=== PATIENT | female | born 2000 | race Native Hawaiian/Other Pacific Islander ===

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

== ENCOUNTER 2020-08-08 03:09 | Emergency (ER) | payer MEDICAID ==
[~2020-08-08] VITALS: Ht 154.9 cm; Wt 49.0 kg
[~2020-08-08 03:09] MED LIST changes: -FERR-252 PO
[2020-08-08 03:15] VITALS: BP 122/81
--- NOTE | 2020-08-08 03:16 | NUR ---
C/O LOWER ABD AND VAGINAL BLEEDING X 2 WEEKS. ABD PAIN COMES AND GOES. VSS. DENIES ANY N,V,DIZZINESS, OR LIGHTHEADEDNESS. 7/10 PAIN. 5MONTHS AGO SHE GOT A CONTROL IMPLANT ON THE LT UPPER ARM. ADB IS SOFT, FLAT, ACTIVE BS, AND NONTENDER. DENIES ANY DYSURIA OR BLOOD IN THE URINE. NKDA. PMH:1 .
[2020-08-08] MEDS ORDERED: NAPROXEN 500 MG TAB PO SCH ×3 (04:00→09:00)
--- NOTE | 2020-08-08 04:14 | NUR ---
DROPPED OFF BLOOD TO LAB.
[2020-08-08 04:19] LABS: BASOPHILS % (AUTO) 0.3 % (0.0-2.0); EOSINOPHILS % (AUTO) 0.5 % (0.0-4.0); HEMATOCRIT 42.5 % (36-48); HEMOGLOBIN 14.6 g/dL (12.0-16.0); LYMPHOCYTES # (AUTO) 1.6 K/uL (2.5-16.5); LYMPHOCYTES % (AUTO) 17.7 % (20.5-51.1); MEAN CORPUSCULAR HEMOGLOBIN 33 pg (27-31); MEAN CORPUSCULAR HGB CONC 34 g/dL (33-37); MONOCYTES # (AUTO) 0.6 K/uL (0.8-1.0); MONOCYTES % (AUTO) 6.2 % (1.7-9.3); NEUTROPHILS # (AUTO) 6.8 K/uL (1.8-7.7); NEUTROPHILS % (AUTO) 75.3 % (42.2-75.2); PLATELET COUNT (AUTO) 217 K/uL (140-450); RED BLOOD CELL COUNT(AUTO) 4.43 MIL/uL (4.20-5.40); RED CELL DISTRIBUTION WIDTH 13.7 % (11.6-13.7)
[2020-08-08 04:45] VITALS: BP 122/81
== END 2020-08-08 04:45 | disposition home or self-care (01) ==
LOC: MED 03:09
DX: R10.9 Unspecified abdominal pain (principal); F12.90 Cannabis use, unspecified, uncomplicated; Z79.899 Other long term (current) drug therapy
CPT/HCPCS: 36415; 81002; 81025; 85025; 99283

== ENCOUNTER 2021-05-20 10:51 | Emergency (ER) | payer MEDICAID ==
[~2021-05-20] VITALS: Ht 160 cm; Wt 46.3 kg
[2021-05-20 10:57] VITALS: BP 124/66
--- NOTE | 2021-05-20 11:05 | NUR ---
Pt ambulated to bed 5.
--- NOTE | 2021-05-20 11:11 | NUR ---
20 Y/O FEMALE C/O PELVIC PAIN/SPOTTING RADIATING TO LOWER BACK X3 DAYS.PATIENT STATES SHE IS TEN WEEKS . DENIES DYSURIA. DENIES ANY RECENT INJURY OR TRAUMA. PT STATES 6/10 SHARP PAIN, TENDER TO TOUCH. MEDHX: DENIES NKA
--- NOTE | 2021-05-20 11:30 | NUR ---
BLOOD LABS COLLCTED AND SENT TO LAB WITH LILLIAN DICKERSON
--- NOTE | 2021-05-20 11:36 | NUR ---
ULTRASOUND AT BEDSIDE
[2021-05-20 11:48] LABS: BASOPHILS % (AUTO) 0.3 % (0.0-2.0); EOSINOPHILS % (AUTO) 0.1 % (0.0-4.0); HEMATOCRIT 39.8 % (36-48); HEMOGLOBIN 13.8 g/dL (12.0-16.0); LYMPHOCYTES % (AUTO) 9.5 % (20.5-51.1); MEAN CORPUSCULAR HEMOGLOBIN 32 pg (27-31); MEAN CORPUSCULAR HGB CONC 35 g/dL (33-37); MEAN CORPUSCULAR VOLUME 92.8 fL (80-94); MONOCYTES # (AUTO) 0.5 K/uL (0.8-1.0); MONOCYTES % (AUTO) 4.7 % (1.7-9.3); NEUTROPHILS # (AUTO) 8.9 K/uL (1.8-7.7); NEUTROPHILS % (AUTO) 85.4 % (42.2-75.2); PLATELET COUNT (AUTO) 190 K/uL (140-450); RED BLOOD CELL COUNT(AUTO) 4.28 MIL/uL (4.20-5.40); RED CELL DISTRIBUTION WIDTH 14.9 % (11.6-13.7); WHITE BLOOD COUNT (AUTO) 10.4 K/uL (4.8-10.8)
[2021-05-20 12:30] LABS: APPEARANCE,URINE HAZY (CLEAR); BILIRUBIN,URINE NEGATIVE (NEGATIVE); BLOOD, URINE NEGATIVE (NEGATIVE); COLOR,URINE YELLOW (YELLOW); LEUKOCYTE ESTERASE ,URINE 1+ (NEGATIVE); NITRITE, URINE NEGATIVE (NEGATIVE); PH,URINE 6.5 (5.0-9.0); UGLUCOSE NEGATIVE (NEGATIVE)
--- NOTE | 2021-05-20 12:46 | NUR ---
DR WILLOUGHBY AT BEDSIDE EXAMINING PT
[2021-05-20] MEDS ORDERED: ONDA8TAB87 PO (13:02)
[2021-05-20] MEDS ORDERED: NITR100C7 PO (13:02)
--- NOTE | 2021-05-20 13:32 | NUR ---
RHOGAM SHOT ADMINSTERED IM LT SIDED GLUTEUS MEDIUS.
[2021-05-20 13:39] VITALS: BP 124/66
--- NOTE | 2021-05-20 13:39 | NUR ---
Patient discharged with v/s stable. Written and verbal after care instructions given and explained. Patient alert, oriented and verbalized understanding of instructions. Ambulatory with steady gait. All questions addressed prior to discharge. ID band removed. Patient advised to follow up with PMD. Rx of MACROBID AND ZOFRAN given. Patient educated on indication of medication including possible reaction and side effects. Opportunity to ask questions provided and answered.
[2021-05-20 14:01] LABS: RBC,URINE 0-5 /HPF (0-5)
== END 2021-05-20 13:39 | disposition home or self-care (01) ==
LOC: MED 10:51
DX: O02.0 Blighted ovum and nonhydatidiform mole (principal); O23.41 Unspecified infection of urinary tract in pregnancy, first trimester; Z3A.12 12 weeks gestation of pregnancy
CPT/HCPCS: 36415; 36430; 76801; 81001; 81025; 84702; 85025; 86850; 86886; 86900; 86901; 87086; 99285; J2790; 96372

== ENCOUNTER 2021-11-04 17:25 | Observation (INO) | payer OTHER, SELFPAY ==
[~2021-11-04] VITALS: Ht 154.9 cm; Wt 54.4 kg
[~2021-11-04 17:25] MED LIST changes: +NITR100C7 PO; +ONDA8TAB87 PO
[2021-11-04 19:04] LABS: BASOPHILS % (AUTO) 0.3 % (0.0-2.0); EOSINOPHILS % (AUTO) 0.1 % (0.0-4.0); HEMATOCRIT 33.4 % (36-48); HEMOGLOBIN 10.6 g/dL (12.0-16.0); LYMPHOCYTES # (AUTO) 0.7 K/uL (2.5-16.5); LYMPHOCYTES % (AUTO) 6.6 % (20.5-51.1); MEAN CORPUSCULAR HEMOGLOBIN 26 pg (27-31); MEAN CORPUSCULAR HGB CONC 32 g/dL (33-37); MEAN CORPUSCULAR VOLUME 79.9 fL (80-94); MONOCYTES # (AUTO) 0.6 K/uL (0.8-1.0); MONOCYTES % (AUTO) 5.3 % (1.7-9.3); NEUTROPHILS # (AUTO) 9.6 K/uL (1.8-7.7); NEUTROPHILS % (AUTO) 87.7 % (42.2-75.2); PLATELET COUNT (AUTO) 133 K/uL (140-450); RED BLOOD CELL COUNT(AUTO) 4.18 MIL/uL (4.20-5.40); RED CELL DISTRIBUTION WIDTH 15.7 % (11.6-13.7)
[2021-11-04 19:04] LABS: BILIRUBIN,URINE 1+ (NEGATIVE); BLOOD, URINE NEGATIVE (NEGATIVE); COLOR,URINE YELLOW (YELLOW); LEUKOCYTE ESTERASE ,URINE 2+ (NEGATIVE); NITRITE, URINE NEGATIVE (NEGATIVE); PH,URINE 8.5 (5.0-9.0); UGLUCOSE NEGATIVE (NEGATIVE)
[2021-11-04] MEDS ORDERED: ONDANSETRON 4 MG/2 ML VIAL ONE (19:27)
[2021-11-04 19:31] LABS: ALBUMIN 2.8 g/dL (3.4-5.0); ANION GAP 13.4 (8-16); CARBON DIOXIDE 23.1 mmol/L (21-32); CREATININE 0.5 mg/dL (0.6-1.3); POTASSIUM 3.5 mmol/L (3.5-5.1); TOTAL BILIRUBIN 0.5 mg/dL (0.0-1.0)
[2021-11-04] MEDS: MORPHINE SULFATE 10 MG/ML VIAL IVP PRN ×2 (19:31→23:29)
[2021-11-04] MEDS: BETAMETH ACET/BETAMETH NA PH 30 MG/5 ML VIAL IM SCH (19:35)
[2021-11-04 19:39] LABS: APPEARANCE,URINE CLOUDY (CLEAR)
[2021-11-04 19:52] LABS: RBC,URINE NONE SEEN /HPF (0-5); WBC,URINE 0-5 /HPF (0-5)
[2021-11-05] MEDS: LACTATED RINGERS 1,000 ML IV SCH ×2 (03:48→11:36)
[2021-11-05] MEDS: ONDANSETRON 4 MG/2 ML VIAL IVP PRN ×3 (04:11→19:30)
[2021-11-05] MEDS: MORPHINE SULFATE 10 MG/ML VIAL IVP PRN ×4 (04:13→19:35)
--- NOTE | 2021-11-05 07:40 | NUR ---
PATIENT HAS BEEN SCREENED AND CATEGORIZED LOW NUTRITION RISK. PATIENT WILL BE SEEN WITHIN 7 DAYS OF ADMISSION. 11/11/[address]
[2021-11-05 19:35] VITALS: BP 113/65
[2021-11-05] MEDS: BETAMETH ACET/BETAMETH NA PH 30 MG/5 ML VIAL IM SCH (19:36)
== END 2021-11-05 21:13 | disposition home or self-care (01) ==
LOC: MLD 17:25
PROVIDERS: ADMIT Obstetrics & Gynecology; ATTEND Obstetrics & Gynecology
DX: O60.03 Preterm labor without delivery, third trimester (principal); Z20.822 Contact with and (suspected) exposure to COVID-19; O24.419 Gestational diabetes mellitus in pregnancy, unspecified control; Z3A.35 35 weeks gestation of pregnancy; Z67.91 Unspecified blood type, Rh negative; Z98.891 History of uterine scar from previous surgery
CPT/HCPCS: 36415; 80053; 81001; 85025; 87426; 87653; 96372; 96374; 96375; 96376; G0378; J0702; J2270; J2405

== ENCOUNTER 2021-11-13 17:40 | Observation (INO) | payer OTHER, SELFPAY ==
[~2021-11-13] VITALS: Ht 154.9 cm; Wt 54.4 kg
[~2021-11-13 17:40] MED LIST changes: -NITR100C7 PO; -ONDA8TAB87 PO
[2021-11-13] MEDS ORDERED: LACTATED RINGERS 1,000 ML IV SCH (19:15)
[2021-11-13] MEDS ORDERED: ONDANSETRON 4 MG/2 ML VIAL IVP PRN (19:15)
[2021-11-13] MEDS: MORPHINE SULFATE 4 MG/ML SYR IVP PRN ×2 (19:51→23:19)
[2021-11-13] MEDS ORDERED: ZOLPIDEM 5 MG TAB PO PRN (23:05)
[2021-11-14] MEDS: MORPHINE SULFATE 4 MG/ML SYR IVP PRN (03:10)
== END 2021-11-14 09:29 | disposition home or self-care (01) ==
LOC: MFCC 17:40
PROVIDERS: ADMIT Obstetrics & Gynecology; ATTEND Obstetrics & Gynecology
DX: O98.513 Other viral diseases complicating pregnancy, third trimester (principal); U07.1 COVID-19; O47.03 False labor before 37 completed weeks of gestation, third trimester; O24.410 Gestational diabetes mellitus in pregnancy, diet controlled; Z3A.36 36 weeks gestation of pregnancy; Z67.91 Unspecified blood type, Rh negative
CPT/HCPCS: 59025; 87426; 96361; 96375; 96376; G0378; J2270; J2405; 96374; G0379

== ENCOUNTER 2021-11-26 13:10 | Inpatient (IN) | payer OTHER, SELFPAY ==
[~2021-11-26] VITALS: Ht 154.9 cm; Wt 54.4 kg
[2021-11-26 14:35] VITALS: BP 123/92
[2021-11-26] MEDS ORDERED: CARBOPROST 250 MCG/ML AMP IM PRN (15:35)
[2021-11-26] MEDS ORDERED: OXYTOCIN 20 UNITS in LACTATED RINGERS 1,000 ML IV SCH (15:35)
[2021-11-26] MEDS ORDERED: METHYLERGONOVINE 0.2 MG/ML AMP IM PRN (15:35)
[2021-11-26] MEDS ORDERED: OXYTOCIN 10 UNITS/ML VIAL IM SCH (15:35)
[2021-11-26 15:58] LABS: BASOPHILS % (AUTO) 0.3 % (0.0-2.0); EOSINOPHILS % (AUTO) 0.4 % (0.0-4.0); HEMATOCRIT 33.1 % (36-48); HEMOGLOBIN 10.8 g/dL (12.0-16.0); LYMPHOCYTES # (AUTO) 1.7 K/uL (2.5-16.5); LYMPHOCYTES % (AUTO) 19.1 % (20.5-51.1); MEAN CORPUSCULAR HEMOGLOBIN 25 pg (27-31); MEAN CORPUSCULAR HGB CONC 33 g/dL (33-37); MEAN CORPUSCULAR VOLUME 75.4 fL (80-94); MONOCYTES # (AUTO) 0.6 K/uL (0.8-1.0); NEUTROPHILS # (AUTO) 6.3 K/uL (1.8-7.7); NEUTROPHILS % (AUTO) 73.2 % (42.2-75.2); PLATELET COUNT (AUTO) 166 K/uL (140-450); RED CELL DISTRIBUTION WIDTH 16.5 % (11.6-13.7); WHITE BLOOD COUNT (AUTO) 8.7 K/uL (4.8-10.8)
[2021-11-26 16:23] LABS: ALBUMIN 2.8 g/dL (3.4-5.0); ANION GAP 14.7 (8-16); CREATININE 0.4 mg/dL (0.6-1.3); POTASSIUM 3.7 mmol/L (3.5-5.1); TOTAL BILIRUBIN 0.3 mg/dL (0.0-1.0)
[2021-11-26] MEDS ORDERED: OXYTOCIN 20 UNITS/LR PREMIX 1,000 ML IV ONE (18:01)
[2021-11-26] MEDS: LACTATED RINGERS 1,000 ML IV SCH ×2 (18:53→22:15)
[2021-11-26 18:57] LABS: BARBITURATE, URINE NEGATIVE ng/ml (NEG <=200); BENZODIAZEPINE, URINE NEGATIVE ng/mL (NEG <=200); CANNABINOID, URINE POSITIVE ng/mL (NEG <=50); COCAINE, URINE NEGATIVE ng/mL (NEG <=300); OPIATE, URINE NEGATIVE ng/mL (NEG <=2000); PHENCYCLIDINE SCREEN,URINE NEGATIVE ng/mL (NEG <=25)
[2021-11-26 19:05] LABS: APPEARANCE,URINE HAZY (CLEAR); BILIRUBIN,URINE NEGATIVE (NEGATIVE); BLOOD, URINE TRACE-I (NEGATIVE); COLOR,URINE YELLOW (YELLOW); LEUKOCYTE ESTERASE ,URINE 3+ (NEGATIVE); NITRITE, URINE NEGATIVE (NEGATIVE); UGLUCOSE NEGATIVE (NEGATIVE)
[2021-11-26 19:18] LABS: WBC,URINE 80-100 /HPF (0-5)
[2021-11-26 19:19] LABS: OTHER CASTS, URINE None Seen /LPF (None Seen); URINE AMORPHOUS URATE 2+ /HPF (None Seen)
[2021-11-26] MEDS ORDERED: MORPHINE SULFATE 5 MG/ML VIAL IVP PRN (20:05)
[2021-11-26] MEDS ORDERED: ONDANSETRON 4 MG/2 ML VIAL IVP PRN (20:05)
[2021-11-26] MEDS ORDERED: ROPIVACAINE 0.2%/NS PREMIX 200 ML EPI SCH (21:20)
[2021-11-27] MEDS: LACTATED RINGERS 1,000 ML IV SCH (01:04)
--- NOTE | 2021-11-27 06:57 | NUR ---
PATIENT HAS BEEN SCREENED AND CATEGORIZED LOW NUTRITION RISK. PATIENT WILL BE SEEN WITHIN 7 DAYS OF ADMISSION. 12/03/21 SHELIA MART MS, RDN
[2021-11-27] MEDS ORDERED: METHYLERGONOVINE 0.2 MG TAB PO PRN (09:30)
[2021-11-27] MEDS ORDERED: IBUPROFEN 800 MG TAB PO PRN (09:30)
[2021-11-27] MEDS ORDERED: MEASLES, MUMPS, AND RUBELLA 1 VIAL SQVAC ONE (09:30)
[2021-11-27] MEDS ORDERED: METHYLERGONOVINE 0.2 MG/ML AMP IM PRN (09:30)
[2021-11-27] MEDS ORDERED: BENZOCAINE/MENTHOL 20%-0.5% 60 GM CAN TP PRN (09:30)
[2021-11-27] MEDS ORDERED: OXYTOCIN 10 UNITS/ML VIAL IM PRN (09:30)
[2021-11-27] MEDS: HYDROcodone/APAP 5/325 MG 1 TAB TAB PO PRN (12:14)
[2021-11-27] MEDS: HYDROcodone/APAP 10/325 MG 1 TAB TAB PO PRN (20:03)
[2021-11-27] MEDS ORDERED: FLU VACCINE QS2021-22 0.5 ML SYR IMVAC ONE (23:00)
[2021-11-28] MEDS: HYDROcodone/APAP 10/325 MG 1 TAB TAB PO PRN (02:10)
[2021-11-28 07:43] LABS: HEMATOCRIT 29.9 % (36-48); HEMOGLOBIN 9.7 g/dL (12.0-16.0)
[2021-11-28] MEDS: HYDROcodone/APAP 5/325 MG 1 TAB TAB PO PRN (17:42)
[2021-11-29] MEDS: HYDROcodone/APAP 5/325 MG 1 TAB TAB PO PRN (02:17)
== END 2021-11-29 14:30 | disposition home or self-care (01) | DRG 560 ==
LOC: INTOOBSV 13:10 → MLD 13:10 → OBSVTOIN 15:30 → MFCC 11-27 13:15
PROVIDERS: ADMIT Obstetrics & Gynecology; ATTEND Obstetrics & Gynecology
PROC: 3E033VJ Introduction of Other Hormone into Peripheral Vein, Percutaneous Approach (ICD-10-PCS; 2021-11-26)
PROC: 10E0XZZ Delivery of Products of Conception, External Approach (ICD-10-PCS; principal; 2021-11-27)
PROC: 0KQM0ZZ Repair Perineum Muscle, Open Approach (ICD-10-PCS; 2021-11-27)
PROC: 10907ZC Drainage of Amniotic Fluid, Therapeutic from Products of Conception, Via Natural or Artificial Opening (ICD-10-PCS; 2021-11-27)
PROC: 3E0R3BZ Introduction of Anesthetic Agent into Spinal Canal, Percutaneous Approach (ICD-10-PCS; 2021-11-27)
PROC: 00HU33Z Insertion of Infusion Device into Spinal Canal, Percutaneous Approach (ICD-10-PCS; 2021-11-27)
PROC: 3E0234Z Introduction of Serum, Toxoid and Vaccine into Muscle, Percutaneous Approach (ICD-10-PCS; 2021-11-28)
DX: O26.893 Other specified pregnancy related conditions, third trimester (principal); Z37.0 Single live birth; D62 Acute posthemorrhagic anemia; Z20.822 Contact with and (suspected) exposure to COVID-19; O70.1 Second degree perineal laceration during delivery; Z3A.38 38 weeks gestation of pregnancy; Z83.3 Family history of diabetes mellitus; Z67.41 Type O blood, Rh negative; O99.02 Anemia complicating childbirth
CPT/HCPCS: G0378 ×2; 36415; 51702; 59409; 76815; 80053; 80305; 81001; 85018; 85025; 86592; 86762; 86870; 86886; 86900; 86901; 87086; 87340; 90715; J2590; J2790; J2795; Q0092

== ENCOUNTER 2023-01-22 11:03 | Emergency (ER) | payer OTHER ==
[~2023-01-22] VITALS: Ht 157.5 cm; Wt 48.1 kg
[2023-01-22 11:07] VITALS: BP 126/76
--- NOTE | 2023-01-22 12:33 | NUR ---
22 Y/O FEMALE BIB SELF C/O LEFT ANKLE PAIN X1 DAY, PER PT SHE WAS ROLLER BLADING WHEN SHE TWISTED HER FOOT. DENIES ANY NUMBNESS OR TINGLING. NO OVERT DEFORMITY NOTED NKA PMH: DENIES
[2023-01-22] MEDS ORDERED: ACET-10509 PO (12:43)
[2023-01-22] MEDS ORDERED: KETOROLAC 30 MG/ML VIAL IM ONE (12:45)
--- NOTE | 2023-01-22 12:58 | NUR ---
SHORT LEG POSTERIOR AND ANKLE STIRRUP SPLINT APPLIED TO L LOWER LEG. + CMS AFTER APPLICATION. CATHLEEN WRAP X 2. PT GIVEN CRUTCHES AND RETURNED SAFE DEMONSTRATION.
--- NOTE | 2023-01-22 13:13 | NUR ---
Patient discharged with v/s stable. Written and verbal after care instructions ABOUT ANKLE PAIN given and explained. Patient alert, oriented and verbalized understanding of instructions. Ambulatory with steady gait. All questions addressed prior to discharge. ID band removed. Patient advised to follow up with PMD. Rx of ACETAMINOPHEN given. Patient educated on indication of medication including possible reaction and side effects. Opportunity to ask questions provided and answered.
== END 2023-01-22 13:12 | disposition home or self-care (01) ==
LOC: MED 11:03
DX: M25.572 Pain in left ankle and joints of left foot (principal); Z79.899 Other long term (current) drug therapy
CPT/HCPCS: 29515; 73610; 81025; 96372; 99283; J1885

== ENCOUNTER 2024-06-06 15:39 | Observation (INO) | payer OTHER ==
[~2024-06-06] VITALS: Ht 154.9 cm; Wt 53.1 kg
[~2024-06-06 15:39] MED LIST changes: +ACET-10509 PO
== END 2024-06-06 20:00 | disposition home or self-care (01) ==
LOC: MLD 15:39
PROVIDERS: ADMIT Obstetrics & Gynecology; ATTEND Obstetrics & Gynecology
DX: O26.893 Other specified pregnancy related conditions, third trimester (principal); R10.9 Unspecified abdominal pain; Z3A.29 29 weeks gestation of pregnancy
CPT/HCPCS: 36415; 86850; 86886; 86900; 86901; 96372; G0378; G0379; J2790; 36430